=== PATIENT | female | born 1960 | race Caucasian/White ===

== ENCOUNTER 2017-06-08 05:14 | Day surgery (SDC) | payer BC ==
[2017-06-07 09:28] VITALS: BMI 27.7
[2017-06-08] MEDS ORDERED: MIDAZOLAM HCL 2 MG/2 ML SINGLE DOSE VIAL ONE (07:25)
[2017-06-08] MEDS ORDERED: PROPOFOL 20 ML ONE ×2 (07:25→08:03)
[2017-06-08] MEDS ORDERED: LIDOCAINE HCL 2% (20ML MULTI-DOSE VIAL) NR ONE (07:25)
[2017-06-08] MEDS ORDERED: SUCCINYLCHOLINE CHLORIDE 200 MG/10 ML VIAL ONE (07:27)
--- NOTE | 2017-06-08 07:45 | HP ---
Past Medical History - Primary Care Physician PCP:: Boy Griffith - Admission Chief Complaint: thicken irrregular EM, r/o EM polyp History of Present Illness: 56 yo f with hx of vaginal spotting and thicken EM , r/o polyp admitted for hysteroscopy EM polypectomy. rba discussed History Source: Patient Limitations to Obtaining History: No Limitations - Past Medical History Pulmonary: Yes: Asthma - Past Surgical History Hx Myomectomy: No Hx Transabdominal Cerclage: No - Smoking History Smoking history: Never smoked - Alcohol/Substance Use Hx Alcohol Use: Yes (SOCIAL) - Social History History of Recent Travel: No Home Medications - Allergies Allergies/Adverse Reactions: Allergies Allergy/AdvReac Type Severity Reaction Status Date / Time aspirin Allergy Severe Difficulty Verified 06/08/17 06:18 Breathing NSAIDS (Non-Steroidal Allergy Severe Difficulty Verified 06/08/17 06:18 Anti-Inflamma Breathing - Home Medications Home Medications: Ambulatory Orders Albuterol Sulfate Inhaler - [Ventolin Hfa Inhaler -] 1 puff IH PRN PRN 06/07/17 Multivit-Min/Iron/Folic/Lutein [Centrum Silver Women Tablet] 1 each PO DAILY Acetaminophen [Tylenol -] 500 mg PO PRN PRN 06/08/17 Review of Systems - Review of Systems Constitutional: reports: No Symptoms Eyes: reports: No Symptoms HENT: reports: No Symptoms Neck: reports: No Symptoms Cardiovascular: reports: No Symptoms Respiratory: reports: No Symptoms Gastrointestinal: reports: No Symptoms Genitourinary: reports: No Symptoms Breasts: reports: No Symptoms Reported Musculoskeletal: reports: No Symptoms Integumentary: reports: No Symptoms Neurological: reports: No Symptoms Psychiatric: reports: No Symptoms Physical Exam-[employer] Vital Signs: Vital Signs Temperature 98.2 F 06/08/17 06:15 Pulse Rate 57 L 06/08/17 06:15 Respiratory Rate 20 06/08/17 06:15 Blood Pressure 119/68 06/08/17 06:15 O2 Sat by Pulse Oximetry (%) 99 06/08/17 06:14 Constitutional: Yes: Well Nourished, No Distress, Calm Eyes: Yes: WNL, Conjunctiva Clear, EOM Intact HENT: Yes: WNL, Atraumatic, Normocephalic Neck: Yes: WNL, Supple, Trachea Midline Cardiovascular: Yes: WNL, Regular Rate and Rhythm Respiratory: Yes: WNL, Regular, CTA Bilaterally Gastrointestinal: Yes: WNL ...Rectal Exam: Yes: WNL Renal/: Yes: WNL Vaginal Exam: Yes: Normal Cervix: Yes: Normal Uterus: Yes: Normal Adnexa: Not Palpable: Left, Right Breast(s): Yes: WNL Musculoskeletal: Yes: WNL Extremities: Yes: WNL Edema: No Integumentary: Yes: WNL Neurological: Yes: WNL, Alert, Oriented ...Motor Strength: WNL Psychiatric: Yes: WNL, Alert, Oriented Problem List - Problem (1) Thickened endometrium Code(s): R93.8 - ABNORMAL FINDINGS ON DIAGNOSTIC IMAGING OF BODY STRUCTURES (2) Endometrial polyp Code(s): N84.0 - POLYP OF CORPUS UTERI (3) Postmenopausal bleeding Code(s): N95.0 - POSTMENOPAUSAL BLEEDING Assessment/Plan hysteroscopy, EM polypectomy, rba discussed
[2017-06-08] MEDS ORDERED: ONDANSETRON 4 MG/2 ML VIAL IVPB PRN (07:59)
[2017-06-08] MEDS ORDERED: oxyCODONE HCL 5 MG TABLET PO PRN (07:59)
[2017-06-08] MEDS ORDERED: DEXAMETHASONE SOD PHOSPHATE 4 MG/1 ML VIAL ONE (07:59)
[2017-06-08] MEDS ORDERED: ELECTROLYTE-148 SOLN 1,000 ML IV SCH (08:00)
[2017-06-08] MEDS ORDERED: PROMETHAZINE HCL 25 MG/1 ML VIAL IVPUSH PRN (08:31)
[2017-06-08] MEDS ORDERED: LACTATED RINGERS SOLUTION 1,000 ML IV SCH (08:45)
[2017-06-08 09:14] VITALS: TEMP 97.5
[2017-06-08 12:00] VITALS: BP 114/72; PULSE 55
--- NOTE | 2017-06-11 13:23 | PATH ---
Surgical Pathology Report Patient Name: TITO SAM [facility]. Rec. #: [id number] /Age/Gender: 1960 (Age: 56) / F Account: [id number] Location: [facility] Taken: 06/08/2017 Received: 06/08/2017 Reported: 06/11/2017 Physicians: Boy Griffith M.D. Specimen(s) Received A: ENDOCERVICAL CURETTINGS B: ENDOMETRIAL CURETTINGS C: ENDOMETRIAL POLYPS Clinical History Endometrial polyp, postmenopausal bleeding Final Diagnosis A. ENDOCERVIX, CURETTAGE: FRAGMENTS OF BENIGN ENDOCERVICAL TISSUE. SCANT FRAGMENTS OF BENIGN SQUAMOUS EPITHELIUM. B. ENDOMETRIUM, CURETTAGE: POLYPOID AND NON-POLYPOID FRAGMENTS OF INACTIVE ENDOMETRIUM. FRAGMENTS OF BENIGN ENDOCERVICAL TISSUE. FRAGMENTS OF BENIGN SQUAMOUS EPITHELIUM. C. ENDOMETRIAL POLYPS, POLYPECTOMY: ENDOMETRIAL POLYPS. Electronically Signed Geraldo Montes M.D. Gross Description A. Received in formalin labelled "endocervical curetting" is a 0.3 cm in greatest dimension aggregate of mucoid and hemorrhagic material. Totally submitted in one cassette. B. Received in formalin labelled "endometrial curetting" is a 1.5 x 1.5 x 0.4 cm aggregate of hemorrhagic material. Totally submitted in one cassette. C. Received in formalin labelled "polyp endometrium" is a 3.0 x 2.5 x 1.0 cm aggregate of polypoid sifuentes tissue fragments. Totally submitted in 3 cassettes [facility]/06/08/2017 [facility]/06/08/2017
--- NOTE | 2017-06-12 09:15 | OP ---
DATE OF OPERATION: 06/08/2017 PREOPERATIVE DIAGNOSES: Postmenopausal bleeding, thickened endometrium, rule out endometrial polyp. POSTOPERATIVE DIAGNOSES: Postmenopausal bleeding, thickened endometrium, rule out endometrial polyp. PROCEDURE: Hysteroscopy, dilatation and curettage, and endometrial polypectomy. SURGEON: Boy Griffith MD ANESTHESIA: General. ESTIMATED BLOOD LOSS: 25 mL DESCRIPTION OF OPERATION: Patient was taken to the operating room. Under adequate general anesthesia, examination under anesthesia revealed external genitalia to be normal. Vagina was normal. Cervix was clean; no lesion. Uterus normal size. Adnexa: No masses were palpable. Then, with a weighted speculum in the vagina, anterior lip of the cervix was grasped with a single-tooth tenaculum. Endocervical curetting was done. Uterine cavity was sounded to 8 cm. Then, the cervix was slightly dilated, and the hysteroscope was introduced. Visualization of endocervical canal appeared to be normal. Endometrium was atrophic. There was a large endometrial polyp, approximately 3 cm was seen at the mid-portion of the uterus. Both cornua regions were identified, and ostia were identified. Then, hysteroscope was withdrawn, and then, the endometrial polyp was removed entirely. Then, the endometrium was curetted. Patient tolerated the procedure well, left the OR in good condition. BOY GRIFFITH M.D. /[id number]
== END 2017-06-08 12:00 | disposition home or self-care (01) ==
LOC: JASU-SURG 05:14
PROVIDERS: ATTEND Obstetrics & Gynecology
PROC: 0UB98ZX Excision of Uterus, Via Natural or Artificial Opening Endoscopic, Diagnostic (ICD-10-PCS; principal; 2017-06-08 07:30)
PROC: 0UDB8ZX Extraction of Endometrium, Via Natural or Artificial Opening Endoscopic, Diagnostic (ICD-10-PCS; 2017-06-08 07:30)
DX: N95.0 Postmenopausal bleeding (principal); N84.0 Polyp of corpus uteri
CPT/HCPCS: 88305-TC; 94760

== ENCOUNTER 2019-02-28 04:26 | Day surgery (SDC) | payer BC ==
[2019-02-24 11:13] VITALS: BMI 28.6
[~2019-02-28 04:26] MED LIST: ceFAZolin SODIUM 1 GM VIAL IVPB ONE
--- NOTE | 2019-02-28 07:12 | HP ---
History & Physical Update - Physical Physical: No Change - Assessment Assessment: No Change - Plan Plan: No Change (H&P reviwed, no changes , for hysteroscopy D&C)
[2019-02-28] MEDS ORDERED: PROPOFOL 20 ML ONE (07:48)
[2019-02-28] MEDS ORDERED: MIDAZOLAM HCL 2 MG/2 ML SINGLE DOSE VIAL ONE (07:48)
[2019-02-28] MEDS ORDERED: ACETAMINOPHEN INJECTION 100 ML IVPB ONE (07:49)
[2019-02-28] MEDS ORDERED: ALBUTEROL SO4 8 GM HFA INHALER IH ONE (07:54)
[2019-02-28] MEDS ORDERED: DEXAMETHASONE SOD PHOSPHATE 4 MG/1 ML VIAL ONE (08:42)
[2019-02-28] MEDS ORDERED: ONDANSETRON 4 MG/2 ML VIAL IVPUSH PRN (08:44)
[2019-02-28] MEDS ORDERED: oxyCODONE HCL 5 MG TABLET PO PRN (08:44)
[2019-02-28] MEDS ORDERED: ELECTROLYTE-148 SOLN 1,000 ML IV SCH (08:45)
[2019-02-28] MEDS ORDERED: LACTATED RINGERS SOLUTION 1,000 ML IV SCH (09:00)
--- NOTE | 2019-02-28 09:17 | OP ---
DATE OF OPERATION: 02/28/2019 PREOPERATIVE DIAGNOSIS: Endometrial polyp. POSTOPERATIVE DIAGNOSIS: Endometrial polyp. PROCEDURE: Hysteroscopy, dilatation and curettage, and polypectomy. SURGEON: Boy Griffith MD ANESTHESIA: General. ANESTHESIOLOGIST: ESTIMATED BLOOD LOSS: 25 mL. OPERATION: Patient was taken to the operating room. Under adequate general anesthesia in dorsal lithotomy position examination under anesthesia revealed external genitalia to be normal. Vagina was normal. Cervix was clean, no lesion. Uterus was normal size. Adnexa: No masses were palpable. Then with the weighted speculum in the vagina anterior lip of the cervix was grasped with single-tooth tenaculum. Cervix was slightly dilated and then Symphion resectoscope hysteroscope was introduced. Visualization of endometrial cavity showed endometrium was atrophic. There was a large polyp at the fundal area of the uterus toward the left fundal area. Then with the hysteroscope resectoscope the polyp was resected at the base and removed in its entirety. Then hysteroscope was withdrawn. Endometrium was curetted. A small amount of tissue was obtained. Patient tolerated procedure well, left the OR in good condition. Ralph [id number]
[2019-02-28 12:32] VITALS: BP 118/57; PULSE 66; TEMP 97.8
--- NOTE | 2019-03-03 11:12 | PATH ---
Surgical Pathology Report Patient Name: TITO SAM [facility]. Rec. #: [id number] /Age/Gender: 1960 (Age: 58) / F Account: [id number] Location: [facility] SUR[facility] Taken: 02/28/2019 Received: 02/28/2019 Reported: 03/03/2019 Physicians: Boy Griffith M.D. Specimen(s) Received ENDOMETRIAL POLYPS AND CURETTINGS Clinical History Endometrial polyp Final Diagnosis ENDOMETRIUM, POLYPECTOMY AND CURETTING: BENIGN ENDOMETRIAL POLYP, AND BENIGN SQUAMOUS EPITHELIUM. NO ENDOMETRIAL HYPERPLASIA OR CARCINOMA IDENTIFIED. Electronically Signed Trent Sams M.D. Gross Description Received in formalin labeled "endometrial polyp/curettings," is a 2.2 x 1.8 x 0.3 cm aggregate of sifuentes pink soft tissue fragments. The formalin is filtered and the specimen is entirely submitted in one cassette. /02/28/2019 [place]/02/28/2019
== END 2019-02-28 13:00 | disposition home or self-care (01) ==
LOC: JASU-SURG 04:26
PROVIDERS: ATTEND Obstetrics & Gynecology
PROC: 0UJD8ZZ Inspection of Uterus and Cervix, Via Natural or Artificial Opening Endoscopic (ICD-10-PCS; 2019-02-28)
PROC: 0UB97ZX Excision of Uterus, Via Natural or Artificial Opening, Diagnostic (ICD-10-PCS; principal; 2019-02-28 08:00)
PROC: 0UDB7ZX Extraction of Endometrium, Via Natural or Artificial Opening, Diagnostic (ICD-10-PCS; 2019-02-28 08:00)
DX: N84.0 Polyp of corpus uteri (principal)
CPT/HCPCS: 88305-TC; 94760; J0131